=== PATIENT | female | born 2000 | race Caucasian/White ===

== ENCOUNTER 2019-03-14 19:00 | Inpatient (IN) ==
[2019-03-14] MEDS ORDERED: SODIUM CHLORIDE 0.9% 1000ML 1,000 ML IV ONE (19:16)
[2019-03-14] MEDS ORDERED: levETIRAcetam 1,250 MG in DEXTROSE 5% 100 ML IV STA (19:16)
[2019-03-14] MEDS ORDERED: DiphenhydrAMINE HCL 50 MG/ML VIAL IV STA (19:22)
[2019-03-14] MEDS ORDERED: ACETAMINOPHEN 325 MG TAB PO STA (19:22)
--- NOTE | 2019-03-14 19:23 | Emergency Department Note ---
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 Nursing states the patient went home after being discharged from the hospital today. Nursing states the patient had a bowl of soup and sat on the couch when she had the seizure. The patient's friend states the patient was really stiff and she was shaking during the seizure. The friend states the seizure lasted about 45 seconds and the patient passed out after the seizure. The friend states the patient was confused after the seizure. The friend states the patient did not fall or hit her head. The patient states she went asleep at 7 AM last night. She states she does not have any stresses besides finals. She notes she had seizures 6 years ago and was seen in [place], [place]. She states she had a brain mass that was not removed. She states she does not take any medications besides control. The patient states she smokes marijuana but notes she did not smoke any since going home this afternoon. she states she does not drink alcohol, smoke tobacco, or use other drugs. Home Medications Home Medications Medication Instructions Recorded Confirmed Type norethindrone-e.estradiol-iron 1 tab PO DAILY 03/14/19 03/14/19 History [04/17 (28)] Allergies Allergy/AdvReac Type Severity Reaction Status Date / Time No Known Allergies Allergy Verified 03/14/19 19:28 Past Med/Surg History Medical History (Updated 03/14/19 @ 19:32 by Lucas Devine MD) Brain tumor Seizure Yeast infection Surgical History No history of previous surgery Family History Grandfather (Paternal) Colorectal cancer Other Breast cancer Diabetes Hypertension Kidney disease Migraines Thyroid disease Social History (Updated 03/14/19 @ 19:34 by Lucas Devine MD) Preferred Language: Italian Communication Ability: Effective Wreath Inspector Required: No Beliefs That Will Affect Care: None Current Living Situation: Other Current Living Situation Comment: apartment with roommates current occupational status: student Other Information That Helps Us Care for You: No Feels Safe at Home: Yes Safety Concerns: Feels Safe At This Time Smoking Status: Never smoker Do You Dip or Chew Tobacco: No ; Second Hand Exposure: No ; Tobacco Cessation Education Requested by Patient: No Hx Alcohol Use: No Hx Substance Use: Yes substance use type: marijuana Substance Use Type Other:: 2x/q2 wks Review of Systems See HPI for pertinent positives & negatives. and A total of 10 systems reviewed and were otherwise negative Physical Exam Vital Signs Vital Signs - 24 hr 03/14/19 19:04 03/14/19 19:16 Temperature 37.1 C Temperature Source Oral Pulse Rate 92 H Respiratory Rate 20 Blood Pressure 125/79 Blood Pressure Mean 94 Pulse Oximetry 98 98 Oxygen Delivery Method Room Air Room Air Sepsis Recent Fever Within 48 Hours No Sepsis New/Unexplained Change in Mental Status No Sepsis Action Taken by Nursing No Action Required GENERAL: Well nourished, non-toxic. Tired in appearance. EYE EXAM: Normal conjunctiva. PERRL, no anisocoria and EOM's grossly intact w/o pain. OROPHARYNX: Moist mucous membranes. Normal dentition. Abrasions to the bilateral sides of the tongue. Hemostatic. No large laceration noted. NECK: Supple, no nuchal rigidity, no adenopathy, non-tender. no signs of meningismus. LUNGS: Clear to auscultation. Normal chest wall mechanics. HEART: NSR, no MRG. ABDOMEN: Abdomen soft, non-tender, normo-active bowel sounds, no masses, no rebound or guarding. BACK: No CVA TTP. SKIN: No rashes and no bruising. UPPER EXTREMITIES: Upper extremities are grossly normal. LOWER EXTREMITIES: No pitting edema. No calf pain. NEURO EXAM: Cranial nerves II-XII grossly intact, normal speech. No sensory deficits, normal pronator drift. 5/5 strength throughout. Moves all 4 extremities on command w/o issue. Course Course 1907: The patient was evaluated in room A2, and a complete history and physical examination were performed. 1921: I discussed the patient's case [facility] She will evaluate the patient for further management. Administered Medications Gadobutrol (Gadavist 65ml) 6 ml IV ONCE PRN PRN Reason: Interaction Checking Stop: 03/18/19 20:47 Last Admin: 03/14/19 20:48 Dose: 6 ml Documented by: [id number] Miscellaneous (Order Awaiting Action) 1 ea N/A QS LINDA Stop: 04/13/19 21:14 Last Admin: 03/14/19 22:17 Dose: Not Given Documented by: [id number] Discontinued Medications Acetaminophen (Tylenol) 650 mg PO NOW STA Stop: 03/14/19 19:23 Last Admin: 03/14/19 20:08 Dose: 650 mg Documented by: [id number] Diphenhydramine HCl (Benadryl) 25 mg IV NOW STA Stop: 03/14/19 19:23 Last Admin: 03/14/19 20:09 Dose: 25 mg Documented by: [id number] Sodium Chloride (Nss 1000ml) 1,000 mls @ 999 mls/hr IV .Q1H1M ONE Stop: 03/14/19 20:16 Last Infusion: 03/14/19 20:29 Dose: 0 mls/hr Documented by: [id number] Admin: 03/14/19 19:44 Dose: 999 mls/hr Documented by: [id number] Levetiracetam 1,250 mg/ (Dextrose) 112.5 mls @ 440 mls/hr IV NOW STA Stop: 03/14/19 19:30 Last Infusion: 03/14/19 20:20 Dose: 0 mls/hr Documented by: [id number] Admin: 03/14/19 20:08 Dose: 440 mls/hr Documented by: [id number] Prochlorperazine (Compazine) 2 mls @ 1 mls/min IV ONE ONE Stop: 03/14/19 19:27 Last Admin: 03/14/19 20:09 Dose: 1 mls/min Documented by: [id number] Medical Decision Making Differential Diagnosis Differential diagnosis includes etiologies such as infection, hypoglycemia, electrolyte abnormalities, cardiac sources, intracerebral event, trauma, toxicologic, neurologic, as well as others were entertained. Medical Records Attestation: I reviewed the patient's medical records. The patient was seen at the ED earlier today by Daria Perry PA-C. The patient received Zofran and fluids. Unremarkable blood work. UDS positive for THC. 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 Home Medications Current Medication List: was personally reviewed by me Laboratory Data Attestation: I reviewed the patient's lab results. Patient's blood work from earlier today shows unremarkable CBC and BMP. The patient was THC positive but otherwise UDS was negative. No major electrolyte abnormalities. 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 Radiology results as stated below per my review and the radiologist's interpretation: MRI OF THE BRAIN WITHOUT AND WITH IV CONTRAST CLINICAL HISTORY: s/p seizure x 2, h/o benign brain tumor. COMPARISON STUDY: Head CT performed earlier today. TECHNIQUE: Utilizing a 1.5 Delma magnet and dedicated coil, multiplanar, multiecho imaging of the brain was performed pre and postcontrast administration. IV administration of 6 mL of Gadavist contrast was uneventful. FINDINGS: There are no foci of restricted diffusion to suggest acute infarct. No acute intracranial hemorrhage, midline shift or mass effect is present. Pedro Pablo tricular system is normal. The basilar cisterns are patent. There are no extra axial collections. Note is made of a nonenhancing T2 hyperintense 1.3 x 1 cm left parieto-occipital cortical focus which corresponds to the finding on head CT performed earlier today. No additional foci of parenchymal signal abnormality are noted. This has no enhancement. A 9 mm pineal cyst is noted. Marrow signal is normal. Orbits are unremarkable. A tiny air-fluid level within the right maxillary sinus is noted with several mucous retention cyst. There is no mastoid fluid. There is no evidence for mesial temporal sclerosis. IMPRESSION: 1. No acute intracranial findings. 2. 1.3 x 1 cm nonenhancing T2 hyperintense cortical focus within the left parieto-occipital region which corresponds to the finding on head CT. This is nonspecific however a nonenhancing tumor, such as dysembryoplastic neuroepithelial tumor (DNET), is favored. A focus of encephalomalacia could appear similar although is considered less likely. Correlation with prior outside MRI is recommended to ensure stability. 3. 9 mm pineal cyst. Electronically signed by: Brannon Perez M.D. 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 Patient was seen and evaluated the bedside. The patient did have a seizure earlier today. The patient returned after being discharged and had a subsequent seizure described as tonic approximate 45 seconds in nature with syncope. No head trauma. The patient only complains about headache and tongue pain. Patient has a nonfocal neurologic exam and had an unremarkable [id number] blood sugar prior to arrival. The patient is not actively seizing. The patient was loaded with Marginize MRI the brain was ordered patient was given IV fluids as well as headache cocktail. I did speak the on-call hospitalist agreed to f carlos evaluate treat the patient. Patient was subsequently made to the medicine service. Patient's MRI does show a hyperintense cortical focus corresponds to the head CT finding which may be consistent with a nonenhancing tumor. Impression & Plan Seizure, Sleep deprivation, History of marijuana use Discharge Plan Visit Data *Final* Discharge Date/Time: 03/14/19 20:32 Chief Complaint: Seizure Stated Complaint: SEIZURE ED Provider: Lucas Devine Discharge Problem: Seizure, Sleep deprivation, History of marijuana use Patient Disposition: Admitted As Inpatient Discharge Instructions Interventions: ED Discharge Assessment Last Done: 03/14/19 20:32 The scribe's documentation has been prepared under my direction and personally reviewed by me in its entirety. I confirm that the note above accurately reflects all work, treatment, procedures, and medical decision making performed by me.
[2019-03-14] MEDS ORDERED: PROCHLORPERAZINE 2 ML IV ONE (19:26)
--- NOTE | 2019-03-14 20:16 | History & Physical Report ---
Date of Service March 14, 2019 Assessment & Plan (1) Seizure: Barbara is a 19-year-old female with a past medical history of benign brain tumor and seizures who presents to [facility] due to 2 seizures occurring today. ED course: 1 L normal saline bolus, 1250 mg IV Keppra, 25 mg IV Benadryl, 650 mg p.o. acetaminophen, 10 mg IV Compazine Seizures -admit to med/surg with seizure precautions -IV Ativan ordered as needed for seizures -CT brain shows - "small focus of encephalomalacia in left parietal lobe consistent with a remote insult" -MRI of brain ordered - "1.3 x 1 cm nonenhancing T2 hyperintense cortical focus within the left parieto-occipital region, This is nonspecific however a nonenhancing tumor, such as dysembryoplastic neuroepithelial tumor (DNET), is favored. A focus of encephalomalacia could appear similar although is considered less likely. 9 mm pineal cyst." -Discussed patient's current clinical status with her mother on the phone, who is currently driving into the hospital and will be here in approx 3 hours. She reports that she has the patient's previous medical records and CDs of the patient's past brain scans. We will ask our radiologist to compare this with the MRI that was done this evening to ensure stability of her lesion -Neurology consulted, recommendations appreciated -> Patient loaded with Keppra in the ER. Patient's mother reports that she has been on Keppra in the past. Patient states that she had trouble with her mood on this medication, and would like to try another medication instead -EEG ordered -Patient has numerous triggers for this seizure, including sleep deprivation, caffeine, stress and marijuana usage -No signs or symptoms of infection at this time -Patient's lab work within normal limits, including CBC and CMP -Tox screen negative, except for marijuana CODE STATUS: Full DVT prophylaxis: Patient low risk and ambulatory Disposition: Admit to med/surg (2) Sleep deprivation: (3) History of marijuana use: (4) Brain tumor: History of Present Illness Chief Complaint: Seizure Primary Care Provider: [facility] Barbara is a 19-year-old female with a past medical history of benign brain tumor and seizures who presents to [facility] due to 2 seizures occurring today. She was seen at [facility] earlier today due to a 2-3-minute seizure that occurred while she was lying in bed this morning. This was witnessed by her boyfriend, who states that her arms and legs were stiff, and twitching. He reports that she was not responsive at this time. She was extremely fatigued afterwards, and did not remember the event. She was evaluated at [facility], and discharged home with instructions to follow-up with a neurologist. After her discharge, several hours later, she had another seizure. This time, her boyfriend states that her arms were stretched out in front of her, and she was exhibiting tonic-clonic movements of her arms. He noted that the seizures seem more severe, however it was shorter than the first. He noted that she bit her tongue, and it was bleeding. The seizure broke on its own, and she once again was taken to the hospital. She does have a past medical history of a benign brain tumor that was diagnosed 6 years ago. At this time, she had 1 seizure, and was treated with Keppra for approximately 1.5 years. She was followed by both neurologist and neurosurgeon in [place] for 1.5 years, who monitored her tumor with repeated scans. She states that the tumor remained stable over this time, and she did not require treatment. She has not had a seizure since, and has not seen a neurologist since. Her boyfriend suspects that the seizures were brought on by a number of triggers, namely sleep deprivation. He states that it is finals week at [employer], and that her and her boyfriend have been staying up all night studying, drinking lots of caffeine, and have been under a lot of stress. They do endorse smoking marijuana a couple of nights ago. They deny any recent alcohol use. She does not have any family history of seizures or neurological problems. She has otherwise been well recently. Allergies Allergy/AdvReac Type Severity Reaction Status Date / Time No Known Allergies Allergy Verified 03/14/19 19:28 Home Medications Home Medications Medication Instructions Recorded Confirmed Type norethindrone-e.estradiol-iron 1 tab PO DAILY 03/14/19 03/14/19 History [04/17 (28)] Past Med/Surg History Medical History (Updated 03/14/19 @ 19:32 by Lucas Devine MD) Brain tumor Seizure Yeast infection Surgical History No history of previous surgery Family History Grandfather (Paternal) Colorectal cancer Other Breast cancer Diabetes Hypertension Kidney disease Migraines Thyroid disease Social History (Updated 03/14/19 @ 19:34 by Lucas Devine MD) Preferred Language: Chinese Communication Ability: Effective Technical Communication Teacher Required: No Beliefs That Will Affect Care: None Current Living Situation: Other Current Living Situation Comment: apartment with roommates current occupational status: student Other Information That Helps Us Care for You: No Feels Safe at Home: Yes Safety Concerns: Feels Safe At This Time Smoking Status: Never smoker Do You Dip or Chew Tobacco: No ; Second Hand Exposure: No ; Tobacco Cessation Education Requested by Patient: No Hx Alcohol Use: No Hx Substance Use: Yes substance use type: marijuana Substance Use Type Other:: 2x/q2 wks Review of Systems Constitutional: + fatigue; no fever, no chills and no anorexia Eyes: no diplopia, no loss of peripheral vision and no spots in vision Ear, Nose, Mouth, Throat: no nasal congestion and no sore throat Respiratory: no cough, no dyspnea and no wheezing Cardiovascular: no chest pain, no palpitations, no syncope, no edema and no calf pain Gastrointestinal: no abdominal pain, no nausea, no vomiting and no change in bowel habits Genitourinary: no dysuria and no urinary frequency Musculoskeletal: no back pain Integumentary: no rash Neurologic: + seizure-like activity and + headache(s) Physical Exam Constitutional: WD/WN, vitals as above Eyes: PERRL, conjunctivae normal, anicteric sclerae ENMT: external ear and nose normal, oropharynx normal Mouth: + tongue abnormality (left side of tongue appears erythematous and swollen) Respiratory: normal respiratory effort, lungs clear to auscultation Cardiovascular: RRR, no murmur, no edema Gastrointestinal (Abdomen): normal bowel sounds, soft, nontender, no he patosplenomegaly Musculoskeletal: no cyanosis or clubbing, extremities motor strength 5/5 Skin: no rashes, warm and dry Neurologic: PERRL, EOMI, accommodation nl, no face palsy, no dysarthria CN's II-XI intact bilaterally and moves all extremities; no focal motor deficits Appears fatigued, frequently falling asleep, however is able to answer all questions appropriately Psychiatric: A+Ox3, euthymic affect Results & Data Vital Signs (Past 12 Hours) Vital Signs Temp Pulse Resp BP Pulse Ox 03/14/19 19:16 98 03/14/19 19:04 37.1 C 92 H 20 125/79 98 Code Status & VTE Plan VTE Prophylaxis Plan VTE Prophylaxis will be ordered: Yes Supervising Physician Co-Signing Physician Notes Patient seen and examined, chart reviewed, case discussed with Dr. Kraft and I agree with her assessment and plan as documented above. 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 Patient experienced a tonic seizure earlier today and presented to the ER. Laboratory work-up at that time largely unrevealing, CT head with area of encephalomalacia corresponding with prior tumor. Patient was discharged home and returned to the ER after experiencing a second seizure. Patient has been studying for finals and admits to being a bit sleep deprived as well as ingesting more caffeine than usual. On physical exam she is afebrile, hemodynamically stable, no acute distress Resting comfortably in bed HEENTnormocephalic/atraumatic, pupils equal round and reactive to light, extraocular muscles intact, neck supple Heart+ S1/S2, regular, no murmurs/rubs/gallops LungsCTA bilaterally Abdomenbowel sounds present, abdomen soft, nontender/nondistended Extremitieswarm, well-perfused, no clubbing/cyanosis/edema Neurono deficits Labs and images reviewed Assessment/plan: 19-year-old female presenting with seizure x2. Patient with history of benign brain tumor, prior history of seizures, previously on Keppra but currently not taking any antiepileptic drugs for the last few years. Laboratory work-up unremarkable, electrolytes within normal limits. Brain MRI with 1.3 x 1 cm nonenhancing T2 hyperintense cortical focus within the left parieto-occipital region corresponding to the findings found on head CT. Patient received Keppra load in the ER. She prefers not to continue this m edication if she has the option -We will hold off on additional antiepileptic drugs for now -Check EEG -Neuro consult appreciated -Remainder of plan as above Resident Activity Tracking Resident Involvement: Resident Care Provided Care Provided: Adult [facility] Medicine
[2019-03-14] MEDS ORDERED: GADOBUTROL 65ML VIAL IV PRN (20:48)
[2019-03-14] MEDS ORDERED: ONDANSETRON INJ 2 MG/ML 2 ML VIAL IV PRN (21:06)
[2019-03-14] MEDS ORDERED: ACETAMINOPHEN 325 MG TAB PO PRN (21:06)
[2019-03-14] MEDS ORDERED: LORazepam 1 MG/2 ML VIAL IV PRN (21:06)
--- NOTE | 2019-03-14 21:06 | Magnetic Resonance Report ---
MRI OF THE BRAIN WITHOUT AND WITH IV CONTRAST CLINICAL HISTORY: s/p seizure x 2, h/o benign brain tumor. COMPARISON STUDY: Head CT performed earlier today. TECHNIQUE: Utilizing a 1.5 Delma magnet and dedicated coil, multiplanar, multiecho imaging of the br ain was performed pre and postcontrast administration. IV administration of 6 mL of Gadavist contras t was uneventful. FINDINGS: There are no foci of restricted diffusion to suggest acute infarct. No acute intracranial h emorrhage, midline shift or mass effect is present. Ventricular system is normal. The basilar cistern s are patent. There are no extra axial collections. Note is made of a nonenhancing T2 hyperintense 1. 3 x 1 cm left parieto-occipital cortical focus which corresponds to the finding on head CT performed earlier today. No additional foci of parenchymal signal abnormality are noted. This has no enhancemen t. A 9 mm pineal cyst is noted. Marrow signal is normal. Orbits are unremarkable. A tiny air-fluid le yoli within the right maxillary sinus is noted with several mucous retention cyst. There is no mastoid fluid. There is no evidence for mesial temporal sclerosis. IMPRESSION: 1. No acute intracranial findings. 2. 1.3 x 1 cm nonenhancing T2 hyperintense cortical focus within the left parieto-occipital region wh ich corresponds to the finding on head CT. This is nonspecific however a nonenhancing tumor, such as dysembryoplastic neuroepithelial tumor (DNET), is favored. A focus of encephalomalacia could appear s imilar although is considered less likely. Correlation with prior outside MRI is recommended to ensur e stability. 3. 9 mm pineal cyst. Electronically signed by: Brannon Perez M.D. 03/14/2019 9:05 PM
[2019-03-14] MEDS: JUNEL~ORDER AWAITING ACTION SCH (22:17)
--- NOTE | 2019-03-14 23:39 | Billing Data ---
Date of Service March 14, 2019 Coding Level of Care Code 16116 Initial Inpt Care Lvl 2
[2019-03-15] MEDS: JUNEL~ORDER AWAITING ACTION SCH ×3 (00:19→17:10)
--- NOTE | 2019-03-15 10:29 | Hospitalist Progress Note ---
Date of Service March 15, 2019 Assessment & Plan (1) Seizure: Barbara is a 19-year-old female with a past medical history of benign brain tumor and seizures who presents to [facility] due to 2 seizures occurring today. ED course: 1 L normal saline bolus, 1250 mg IV Keppra, 25 mg IV Benadryl, 650 mg p.o. acetaminophen, 10 mg IV Compazine Seizures -Patient loaded with Keppra in the ER, per patient's mother she had been on Keppra in the past but had mood changes secondary to the medication. -IV Ativan ordered as needed for seizures -CT brain shows - "small focus of encephalomalacia in left parietal lobe consistent with a remote insult" -MRI of brain ordered - "1.3 x 1 cm nonenhancing T2 hyperintense cortical focus within the left parieto-occipital region, This is nonspecific however a nonenhancing tumor, such as dysembryoplastic neuroepithelial tumor (DNET), is favored. A focus of encephalomalacia could appear similar although is considered less likely. 9 mm pineal cyst." -Father, Brother, and friend present in room currently - patients previous medical records and CDs of past brain scans provided. -Will discuss with radiologist to compare with MRI from yesterday for stability of lesion. -Neurology consulted, -EEG ordered - awaiting read -Patient has numerous triggers for this seizure, including sleep deprivation, caffeine, stress and marijuana usage -No signs or symptoms of infection at this time -Patient's lab work within normal limits, including CBC and CMP -Tox screen negative, except for marijuana Brain Tumor -Diagnosed 6 years ago. -Was being screened and managed by Neuro and Neurosurgery in [place]. -Will compare prior brain scans to scan from admission to determine stability of lesion. FEN/GI: Regular CODE STATUS: Full DVT prophylaxis: Patient low risk and ambulatory Disposition: Admit to med/surg (2) Sleep deprivation: (3) History of marijuana use: (4) Brain tumor: Supervising Physician Co-Signing Physician Notes Resident Physician Supervision Note: I independently interviewed and examined the patient and verified the knapp history and physical, reviewed labs and image studies, discussed the case with the resident Dr. Owen and agree with the findings and care plan. Subjective Patient sleeping and difficult to arouse this morning. HPI obtained from records review and Father, Brother, and friend of patient who were present in the room. They stated that the patient had 2 episodes of seizures yesterday morning and evening. Stated that she had 1x history of a seizure in the past roughly 6 years ago, but that she was evaluated and treated with Keppra at the time which was discontinued after a year due to mood changes. Patient had been seizure free for the past 5 years up until yesterday. She also has a history of a "benign brain tumor" that was being followed at home. Her father brings in old records and imaging disks of her previous studies. Noted that patient was seizure free overnight. Review of Systems Review of Systems: Unobtainable due to reduced consciousness Patient sleeping at time of interview, difficult to arouse. Physical Exam Physical Exam: Patient sleeping at time of interview and difficult to arouse. Respiratory: normal respiratory effort, lungs clear to auscultation (Anterior Lung oviedo ) Cardiovascular: RRR, no murmur, no edema Results & Data Vital Signs (Past 12 Hours) Vital Signs Temp Pulse Resp BP Pulse Ox 03/15/19 07:12 36.5 C 65 18 118/74 94 03/14/19 23:37 36.7 C 77 20 127/86 98 Medications Administered Current Inpatient Medications Acetaminophen (Tylenol) 650 mg PO Q4H PRN PRN Reason: pain/fever Stop: 04/13/19 21:05 Gadobutrol (Gadavist 65ml) 6 ml IV ONCE PRN PRN Reason: Interaction Checking Stop: 03/18/19 20:47 Last Admin: 03/14/19 20:48 Dose: 6 ml Documented by: Lorazepam (Ativan) 1 mg in 2 mls @ 0.5 mls/min IV UD PRN PRN Reason: Seizure Stop: 04/13/19 21:05 Miscellaneous (Order Awaiting Action) 1 ea N/A QS LINDA Stop: 04/13/19 21:14 Last Admin: 03/15/19 07:23 Dose: Not Given Documented by: Ondansetron HCl (Zofran) 4 mg IV Q6H PRN PRN Reason: Nausea Stop: 04/13/19 21:05
[2019-03-15 15:47] VITALS: PULSE 75; TEMP 98.6; O2SAT 97
--- NOTE | 2019-03-15 18:20 | Discharge Summary ---
Date of Service March 15, 2019 Admission HPI Per Admitting Provider Barbara is a 19-year-old female with a past medical history of benign brain tumor and seizures who presents to [facility] due to 2 seizures occurring today. She was seen at [facility] earlier today due to a 2-3-minute seizure that occurred while she was lying in bed this morning. This was witnessed by her boyfriend, who states that her arms and legs were stiff, and twitching. He reports that she was not responsive at this time. She was extremely fatigued afterwards, and did not remember the event. She was evaluated at [facility], and discharged home with instructions to follow-up with a neurologist. After her discharge, several hours later, she had another seizure. This time, her boyfriend states that her arms were stretched out in front of her, and she was exhibiting tonic-clonic movements of her arms. He noted that the seizures seem more severe, however it was shorter than the first. He noted that she bit her tongue, and it was bleeding. The seizure broke on its own, and she once again was taken to the hospital. She does have a past medical history of a benign brain tumor that was diagnosed 6 years ago. At this time, she had 1 seizure, and was treated with Keppra for approximately 1.5 years. She was followed by both neurologist and neurosurgeon in [place] for 1.5 years, who monitored her tumor with repeated scans. She states that the tumor remained stable over this time, and she did not require treatment. She has not had a seizure since, and has not seen a neurologist since. Her boyfriend suspects that the seizures were brought on by a number of triggers, namely sleep deprivation. He states that it is finals week at [employer], and that her and her boyfriend have been staying up all night studying, drinking lots of caffeine, and have been under a lot of stress. They do endorse smoking marijuana a couple of nights ago. They deny any recent alcohol use. She does not have any family history of seizures or neurological problems. She has otherwise been well recently. Admission Exam Per Admitting Provider Constitutional: WD/WN, vitals as above Eyes: PERRL, conjunctivae normal, anicteric sclerae ENMT: external ear and nose normal, oropharynx normal Mouth: + tongue abnormality (left side of tongue appears erythematous and swollen) Respiratory: normal respiratory effort, lungs clear to auscultation Cardiovascular: RRR, no murmur, no edema Gastrointestinal (Abdomen): normal bowel sounds, soft, nontender, no hepat osplenomegaly Musculoskeletal: no cyanosis or clubbing, extremities motor strength 5/5 Skin: no rashes, warm and dry Neurologic: PERRL, EOMI, accommodation nl, no face palsy, no dysarthria CN's II-XI intact bilaterally and moves all extremities; no focal motor deficits Appears fatigued, frequently falling asleep, however is able to answer all questions appropriately Psychiatric: A+Ox3, euthymic affect Principal Diagnosis Seizure Discharge Exam Constitutional WD/WN, vitals as above Eyes PERRL, conjunctivae normal, anicteric sclerae Respiratory normal respiratory effort, lungs clear to auscultation Cardiovascular RRR, no murmur, no edema Gastrointestinal (Abdomen) normal bowel sounds, soft, nontender, no hepatosplenomegaly Neurologic patellar DTR's 2+ bilat, sensation intact CN's II-XI intact bilaterally Psychiatric A+Ox3, euthymic affect Discharge Data Allergies Allergy/AdvReac Type Severity Reaction Status Date / Time No Known Allergies Allergy Verified 03/14/19 19:28 Consultations 03/14/19 19:28 ED Decision to Admit Stat 03/14/19 21:06 Consult Neurology Routine 03/15/19 10:23 HIM [Consult Health Information Management] Routine Ordered Studies 03/14/19 19:17 MR brain wo/w con Stat Hospital Course (1) Seizure: Barbara is a 19-year-old female with a past medical history of benign brain tumor and seizures who presents to [facility] due to 2 seizures occurring today. ED course: 1 L normal saline bolus, 1250 mg IV Keppra, 25 mg IV Benadryl, 650 mg p.o. acetaminophen, 10 mg IV Compazine Seizures -Patient loaded with Keppra in the ER, per patient's mother she had been on Keppra in the past but had mood changes secondary to the medication. -IV Ativan ordered as needed for seizures -CT brain shows - "small focus of encephalomalacia in left parietal lobe consistent with a remote insult" -MRI of brain ordered - "1.3 x 1 cm nonenhancing T2 hyperintense cortical focus within the left parieto-occipital region, This is nonspecific however a nonenhancing tumor, such as dysembryoplastic neuroepithelial tumor (DNET), is favored. A focus of encephalomalacia could appear similar although is considered less likely. 9 mm pineal cyst." -Father, Brother, and friend present in room currently - patients previous medical records and CDs of past brain scans provided. -Patient has numerous triggers for this seizure, including sleep deprivation, caffeine, stress and marijuana usage -No signs or symptoms of infection at this time -Patient's lab work within normal limits, including CBC and CMP -Tox screen negative, except for marijuana -Neurology consulted -Neurology follow up in 4-6 weeks -Trileptal 100mg BID until appointment with neurology. -EEG ordered - normal EEG -Plan for DC today since stable on Trileptal 100mg BID with follow neuro in 4-6 weeks. Brain Tumor -Diagnosed 6 years ago. -Was being screened and managed by Neuro and Neurosurgery in [place]. -Slight increase in size noted since last image in 2012, 1x0.9cm to 1.3x1cm currently. -outpatient f/u by neurology FEN/GI: Regular CODE STATUS: Full DVT prophylaxis: Patient low risk and ambulatory Disposition: Discharge home (2) Sleep deprivation: (3) History of marijuana use: (4) Brain tumor: Total Time Total Time Spent Total Time Spent (In Minutes): see attending attestation Discharge Plan Discharge Items Patient Disposition: Home - Self-Care Reason For Visit: SEIZURE Discharge Diagnosis: Seizure Activity: Per Instructions section Non-emergency contact: Primary Care Provider and Neurologist Call non-emergency contact if: you have any medication questions and your symptoms worsen Follow-up/Referrals: Rosalind Martinez MD [Physician] - (Follow up in 4-6 weeks for seizures, patient was evaluated in the hospital ) [facility] [Primary Care Provider] - Diet: Regular Addtl Attending Provider Instructions: Gerhard Justin, Pepito were seen and evaluated at [facility] on 03/14/19-03/15/19 after having 2 witnessed seizures. Upon admission you were given loading doses of an antiseizure medication (Keppra) and kept overnight. You did not have any other events during your stay. You underwent MRI imaging that showed the lesion in your brain that was noted before, now having increased slightly in size to 1.3 x 1 cm vs the 1 x 0.9 cm in 2013's imaging studies. You were evaluated by our Neurologist who recommended that you begin taking Trileptal 100mg by mouth twice a day. She would also like you follow up with Neurology in 4-6 weeks. Please follow the below instructions: -Please lemon picker and take the antiseizure medication being prescribed to you -Trileptal 100mg by mouth twice a day starting tonight -Please be aware that the medication may reduce the effectiveness of your control. If you plan on having any sexual contact please be sure to use an alternative form of control such as condoms. -Please schedule an appointment with your Primary Care Provider within the next 1 week -Please follow up with Neurology in the net 4-6 weeks. -If your seizures return, please return to an ED for evaluation. Pending Studies at Discharge: No Studies:: ADDENDUM Addendum: Comparison was made to outside MRIs of February 10, 2013 and January 18, 2014. The left parieto-occipital cortical T2 hyperintense lesion has minimally increased in size since MRI of February 10, 2013. It now measures 1.3 x 1 cm. It previously measured 1 x 0.9 cm. Electronically signed by: Brannon Perez M.D. 03/15/2019 12:56 PM ADDENDUM END MRI OF THE BRAIN WITHOUT AND WITH IV CONTRAST CLINICAL HISTORY: s/p seizure x 2, h/o benign brain tumor. COMPARISON STUDY: Head CT performed earlier today. TECHNIQUE: Utilizing a 1.5 Delma magnet and dedicated coil, multiplanar, multiecho imaging of the brain was performed pre and postcontrast administr ation. IV administration of 6 mL of Gadavist contrast was uneventful. FINDINGS: There are no foci of restricted diffusion to suggest acute infarct. No acute intracranial hemorrhage, midline shift or mass effect is present. Ventricular system is normal. The basilar cisterns are patent. There are no extra axial collections. Note is made of a nonenhancing T2 hyperintense 1.3 x 1 cm left parieto-occipital cortical focus which corresponds to the finding on head CT performed earlier today. No additional foci of parenchymal signal abnormality are noted. This has no enhancement. A 9 mm pineal cyst is noted. Marrow signal is normal. Orbits are unremarkable. A tiny air-fluid level within the right maxillary sinus is noted with several mucous retention cyst. There is no mastoid fluid. There is no evidence for mesial temporal sclerosis. IMPRESSION: 1. No acute intracranial findings. 2. 1.3 x 1 cm nonenhancing T2 hyperintense cortical focus within the left parieto-occipital region which corresponds to the finding on head CT. This is nonspecific however a nonenhancing tumor, such as dysembryoplastic neuroepithelial tumor (DNET), is favored. A focus of encephalomalacia could appear similar although is considered less likely. Correlation with prior outside MRI is recommended to ensure stability. 3. 9 mm pineal cyst. Electronically signed by: Brannon Perez M.D. 03/14/2019 9:05 PM Dictated: 03/14/192055 Transcribed: 03/14/192055 Stand-Alone Forms: My [facility], Work/School Release (Inpt), Smoking Cessation Medications and DC Order Prescriptions: New oxcarbazepine [Trileptal] 300 mg/5 mL (60 mg/mL) suspension 100 mg PO BID 30 Days Qty: 100.002 RF: 0 Continued norethindrone-e.estradiol-iron [Junel FE 04/17 (28)] 1 mg-20 mcg (21)/75 mg (7) tablet 1 tab PO DAILY RF: 0 Discharge Orders: Discharge Order (Routine); Ordered 03/15/19 Ordered By: [place] Owen Admission Data Admit Date/Time: 03/14/19 20:05 Attending Provider: Charlotte Mckenzie Admit Provider: Christo Kraft Primary Care Provider: [facility] Other Providers: Veronica Chen Christina R. Other Interventions: Discharge Summary Assessment (RN) Last Done: 03/15/19 18:22 DC Date/Time DO NOT enter until pt leaves facility: 03/15/19 19:40 Supervising Physician Co-Signing Physician Notes Resident Physician Supervision Note: I independently interviewed and examined the patient and verified the knapp history and physical, reviewed labs and image studies, discussed the case with the resident Dr. Owen and agree with the findings and care plan.
[2019-03-15 18:24] VITALS: BP 114/84
[2019-03-15] MEDS ORDERED: OXcarbazepine 150 MG TABLET PO ONE (18:45)
--- NOTE | 2019-03-15 19:02 | Neurology Consultation ---
Date of Consultation March 15, 2019 Assessment & Plan (1) Epilepsy: Barbara Anderson is a 19 yo woman w/ PMH of benign brain tumor and h/o seizure who p/t [facility] after 2 seizures. # Epilepsy: meets criteria for epilepsy at this time. Current seizures likely 2/2 sleep deprivation, stress +/- marijuana. - initiate trileptal 100mg bid (would usually start 300mg bid, however she reports sensitivity to medication so we will initiate a slower uptitration; goal dose will be 600mg bid) - follow up in neurology clinic in 4-5 weeks - discussed with patient, her father, her boyfriend and other family members about diagnosis and plan going forward # Brain tumor: size has increased slightly since last available comparison imaging - she will also need neuro-onc follow up which we will work on arranging in the outpatient setting Thank you for this interesting consult. Please text or call with questions. (2) Brain tumor: History of Present Illness Attending Physician: Charlotte Mckenzie MD History of Present Illness Barbara Anderson is a 19 yo woman w/ PMH of benign brain tumor and h/o seizure who p/t [facility] after 2 seizures. She reports that she was in her normal state of health until yesterday morning when her boyfriend witnessed her having a seizure. He describes that she had stiffening of her extremities with mild twitching, +tongue biting, +LoC, no loss of bowel or bladder. Event lasted about 1-2 minutes and self-terminated after which she was tired and confused. They went to the ED where CBC/CMP unremarkable, UDS + for marijuana. She was discharged home and told to follow up with neurology when boyfriend reports that she had another seizure several hours later that had more significant tonic-clonic movements but only lasted about 30-40 seconds, +tongue biting, no loss of bowel/bladder. She does endorse sleep deprivation while studying for finals, lots of caffeine and stress with upcoming finals. Denies any recent dysuria, URI, fever, chills, alcohol use, or family h/o epilepsy. CTH showed a hypodensity in the left parietal lobe. MRI brain w/ and w/o contrast showed a nonenhancing 1.3x1cm lesion in the left parietal lobe and a 9 mm pineal cyst. She does have a h/o benign brain tumor diagnosed about 6 years ago for which she was on keppra for about 1 year after having a single seizure. She was evaluated at [facility] in [facility] for this and reports that she had a normal EEG and stable tumor size on repeat scans, so was discontinued off of keppra. She does report having moodiness/irritability while on keppra, as well as somnolence. Allergies Allergy/AdvReac Type Severity Reaction Status Date / Time No Known Allergies Allergy Verified 03/14/19 19:28 Home Medications Home Medications Medication Instructions Recorded Confirmed Type norethindrone-e.estradiol-iron 1 tab PO DAILY 03/14/19 03/14/19 History [04/17 (28)] oxcarbazepine [Trileptal] 100 mg PO BID 30 Days #100.002 ml 03/15/19 Rx Patient History Medical History Brain tumor Seizure Yeast infection Surgical History No history of previous surgery Family History Grandfather (Paternal) Colorectal cancer Other Breast cancer Diabetes Hypertension Kidney disease Migraines Thyroid disease Social History Preferred Language: Kittitian Communication Ability: Effective [employer]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 Beliefs That Will Affect Care: None Current Living Situation: Other Current Living Situation Comment: apartment with roommates current occupational status: student Other Information That Helps Us Care for You: No Feels Safe at Home: Yes Safety Concerns: Feels Safe At This Time Smoking Status: Never smoker Do You Dip or Chew Tobacco: No ; Second Hand Exposure: No ; Tobacco Cessation Education Requested by Patient: No Hx Alcohol Use: No Hx Substance Use: Yes substance use type: marijuana Substance Use Type Other:: 2x/q2 wks Review of Systems Review of Systems: 14 point review of systems completed and negative except as in HPI. Physical Exam Physical Exam: General Exam: GEN: NAD, sitting in bed. HEENT: No conjunctival injection, no rhinorrhea. CV: RRR, no peripheral edema PULM: Nonlabored respirations on room air. Neuro Exam: MS: Awake and Alert. Oriented to person, place, and date. Speech fluent and appropriate without dysarthria or paraphasic errors. Language intact including naming, comprehension, repetition. Cognition and memory grossly intact. Attention intact. No neglect. CN: Visual oviedo full. No extinction to double simultaneous stimuli. No optic disc edema on fundoscopic exam. PERRLA OU. EOMI without nystagmus. Facial sensation intact to LT. Facial muscles full and symmetric. Hearing intact to conversation. Uvula midline with symmetric palatal elevation. Shoulder shrug normal. Tongue midline. MOTOR: Normal bulk and tone. No pronator drift. BUE strength 5/5 at deltoids, biceps, triceps, wrist flexors and extensors, and finger flexors bilaterally. BLE strength 5/5 at iliopsoas, hamstrings, quadriceps, tibialis anterior, and gastrocnemius bilaterally. REFLEXES: 2+ at biceps, triceps, brachioradialis, patella and Achilles bilaterally. Flexor plantar responses bilaterally. SENSORY: Intact to LT without extinction to double simultaneous stimuli. Vibration and pinprick intact throughout. COORDINATION: No dysmetria or ataxia on [id number] bilaterally. Normal Kolby bilaterally. GAIT: Normal gait and arm swing. Normal Romberg. Results & Data Vital Signs (Past 12 Hours) Vital Signs Temp Pulse Resp BP BP Pulse Ox 03/15/19 18:22 37.0 C 75 16 114/84 115/75 97 03/15/19 15:46 37.0 C 75 16 115/75 97 03/15/19 07:12 36.5 C 65 18 118/74 94 PG Care Time/CCT Total # of Minutes Spent Total Time Spent with Patient: Total time spent is greater than 50% in coordination of care (as documented) at patient's floor/unit and/or counseling patient:
--- NOTE | 2019-03-15 19:18 | Electroencephalogram ---
EEG Procedure Note Date of Service March 15, 2019 Start / End Times Start Time: 6:43am End Time: 7:03am Referring Physician Christo Diaz History 19 yo woman w/ PMH of benign brain tumor with breakthrough seizure x2 Home Medication List Home Medications Medication Instructions Recorded Confirmed Type norethindrone-e.estradiol-iron 1 tab PO DAILY 03/14/19 03/14/19 History [04/17 (28)] oxcarbazepine [Trileptal] 100 mg PO BID 30 Days #100.002 ml 03/15/19 Rx Inpatient Medication List Gadobutrol (Gadavist 65ml) 6 ml IV ONCE PRN PRN Reason: Interaction Checking Stop: 03/18/19 20:47 Last Admin: 03/14/19 20:48 Dose: 6 ml Documented by: [id number] Miscellaneous (Order Awaiting Action) 1 ea N/A QS LINDA Stop: 04/13/19 21:14 Last Admin: 03/15/19 17:10 Dose: Not Given Documented by: [id number] Admin: 03/15/19 07:23 Dose: Not Given Documented by: [id number] Admin: 03/15/19 00:19 Dose: Not Given Documented by: [id number] Admin: 03/14/19 22:17 Dose: Not Given Documented by: [id number] Discontinued Medications Acetaminophen (Tylenol) 650 mg PO NOW STA Stop: 03/14/19 19:23 Last Admin: 03/14/19 20:08 Dose: 650 mg Documented by: [id number] Diphenhydramine HCl (Benadryl) 25 mg IV NOW STA Stop: 03/14/19 19:23 Last Admin: 03/14/19 20:09 Dose: 25 mg Documented by: [id number] Sodium Chloride (Nss 1000ml) 1,000 mls @ 999 mls/hr IV .Q1H1M ONE Stop: 03/14/19 20:16 Last Infusion: 03/14/19 20:29 Dose: 0 mls/hr Documented by: [id number] Admin: 03/14/19 19:44 Dose: 999 mls/hr Documented by: [id number] Levetiracetam 1,250 mg/ (Dextrose) 112.5 mls @ 440 mls/hr IV NOW STA Stop: 03/14/19 19:30 Last Infusion: 03/14/19 20:20 Dose: 0 mls/hr Documented by: [id number] Admin: 03/14/19 20:08 Dose: 440 mls/hr Documented by: [id number] Prochlorperazine (Compazine) 2 mls @ 1 mls/min IV ONE ONE Stop: 03/14/19 19:27 Last Admin: 03/14/19 20:09 Dose: 1 mls/min Documented by: [id number] Oxcarbazepine (Trileptal) 75 mg PO NOW ONE Stop: 03/15/19 18:46 Last Admin: 03/15/19 18:42 Dose: 75 mg Documented by: [id number] Description This is a 21 electrode EEG with a single channel dedicated to limited EKG. The electrodes were placed in accordance with the International 10-20 system. History: 19 yo woman w/ PMH of benign brain tumor who presented with 2 breakthrough seizures Rx: Had received keppra load in ED Start/Stop: 6:43am/7:03am Attending reading: Rosalind Martinez EEG Description: EEG background: Background was normal voltage. A well formed 9-10 Hz posterior dominant rhythm was observed. The EEG is continuous. There is variability and reactivity present. Activation and reactivity: Photic stimulation performed without any abnormalities noted. No photic driving observed. Hyperventilation was not performed. Sleep: The patient was drowsy but did not enter higher levels of sleep. No sleep architecture was recorded during this study. Epileptiform discharges: No epileptiform discharges were observed. Rhythmic and periodic patterns: None Seizures: None Impression: This was a normal EEG. No seizures or epileptiform discharges were seen. This does not rule out epilepsy. Clinical correlation advised.
== END 2019-03-15 19:40 | disposition home or self-care (01) | DRG 101 ==
LOC: ED 19:00 → 4W 20:05 → SUATTDRO 20:05 → 4W 20:32